=== PATIENT | male | born 2000 | race Two or more races ===

== ENCOUNTER 2022-06-20 14:06 | Emergency (ER) | payer OTHER ==
[~2022-06-20] VITALS: Ht 182.9 cm; Wt 70.0 kg
[2022-06-20] MEDS ORDERED: LIDOCAINE 1% HCL (LOCAL ANESTH.) INJ 20ML MDV ID ONE (14:15)
[2022-06-20] MEDS ORDERED: TETANUS-DIPTH-ACEL PERTUSSIS 0.5ML SYR Tdap IM ONE (14:15)
[2022-06-20] MEDS ORDERED: LIDOCAINE 1%HCL (LOCAL ANESTH) 10 ML MDV ONE (14:17)
[2022-06-20 14:19] VITALS: BP 128/80
[2022-06-20] MEDS ORDERED: IBUP800T26 PO (15:08)
[2022-06-20] MEDS ORDERED: CEPH-510 PO (15:08)
== END 2022-06-20 16:46 | disposition home or self-care (01) ==
LOC: ER 14:06
DX: S61.212A Laceration without foreign body of right middle finger without damage to nail, initial encounter (principal); W45.8XXA Other foreign body or object entering through skin, initial encounter; Y93.89 Activity, other specified; Y92.89 Other specified places as the place of occurrence of the external cause; Y99.8 Other external cause status
CPT/HCPCS: 12002; 90471; 90715; 99283; J2001